=== PATIENT | female | born 1945 | race Caucasian/White ===

== ENCOUNTER 2024-08-01 23:59 | Inpatient (IN) | payer MEDICARE, OTHER, SELFPAY ==
[2024-08-01 20:25] VITALS: BP 157/61; BMI 25.5
[2024-08-01 20:26] VITALS: BP 157/61
[2024-08-01 20:54] LABS: % Basophils 0.8 % (0-2); % Immature Granulocytes 0.5 % (0-0.5); % Lymphocytes 18.8 % (20.5-51.1); % Neutrophils 72.9 % (42.2-75.2); Absolute Basophils 0.1 10^3/uL (0-0.2); Absolute Eosinophils 0.1 10^3/uL (0-0.7); Absolute Immature Granulocytes 0.1 10^3/uL (0-0.05); Absolute Lymphocytes 1.9 10^3/uL (1.2-3.4); Absolute Monocytes 0.6 10^3/uL (0.1-0.6); Absolute Neutrophils 7.5 10^3/uL (1.4-6.5); Hematocrit 31.4 % (37.0-47.0); Hemoglobin 10.6 g/dL (12.0-16.0); Mean Corp Hgb Conc. 33.8 g/dL (33.0-37.0); Mean Corpuscular Hgb 28.8 pg (27.0-31.0); Mean Corpuscular Volume 85.3 fL (81.0-99.0); Mean Platelet Volume 9.6 fL (7.4-10.4); Nucleated Red Blood Cells % 0 %; Platelet Count 462 10^3/uL (130-400); Red Blood Cell Count 3.68 10^6/uL (4.20-5.40); Red Cell Dist. Width 12.6 % (11.5-14.5); White Blood Cell Count 10.3 10^3/uL (4.8-10.8)
--- NOTE | 2024-08-01 20:58 | ED.MUSCINJ ---
HPI-Injury
General
Chief Complaint: Fall
Source: patient and family
Exam Limitations: none
Time Seen by Provider: 08/01/24 20:35
Nursing documentation reviewed up to this point in time: agreed with
History of Present Illness-Injury
Is this injury a work related problem?: No
Is pt an associate of [facility]?: No
Initial Injury comments:
79-year-old female right hip pain status post slip in the kitchen she just come back from taking care of her dog, she was trying to get a cup of tea, and then slipped fell right on her right hip no preceding chest pain or shortness of breath no neck
pain no head strike no tongue bite takes no blood thinners, no alcohol, tells me she broke her ankle earlier in life,
Past History
Past History
ED Past Medical History: Hypercholesterolemia, Hypothyroidism and Other (Diverticulosis, kidney stones)
ED Past Surgical History: Gynecological and Other (Cystocele)
Social History
Tobacco: Non-smoker
Alcohol: None
Drug: None
Living: with family
Employment: Retired
Family History
Family History: Other (Noncontributory)
Review of Systems
Review of Systems
All Other Systems: Not applicable
Constitutional: Denies fever
EENT: Reports no symptoms
Respiratory: Reports no symptoms
Cardiac: Reports no symptoms
ABD/GI: Reports no symptoms
Musculoskeletal: Reports joint pain
Phy Exam
Physical Exam
Physical Exam:
Physical Exam
General: 79 female looks uncomfortable due to pain normal mental status
Neck: No tongue bite no posterior neck pain
Heart: s1/s2 regular rate and rhythm, no murmur. equal radial pulses.
Lungs: no acute respiratory distress. clear bilaterally
Abdomen: Nontender
Neuro: alert and oriented. no focal neurological deficits
Skin: no rash
Psychiatric: well kept. interactive and cooperative
Extremities: Shortened right hip with painful range of motion
Injury Course
Orders/Labs/Results
Orders:
Orders
08/01/24 20:42
Electrocardiogram (*1) Urgent
Reason for Study: Other
Other Reason for Exam: trauma
Cardiac Monitoring- Treatment ONCE
EKG- Treatment ONCE
CR Hip - RT w/wo Pel 2-3 Vw* Urgent
Comment: include pelvis
Reason For Exam: Fall pain
Include a pelvis x-ray?: Yes
08/01/24 20:47
Type+Screen Urgent
Complete Blood Count/With Diff Urgent
Comprehensive Metabolic Panel Urgent
08/01/24 20:51
HYDROmorphone [Dilaudid] 0.5 mg IV NOW STA
Ondansetron Injectable [Zofran] 4 mg IV NOW STA
Abnormal Lab Results
08/01/24
20:47
RBC 3.68 L 10^6/uL
(4.20-5.40)
Hgb 10.6 L g/dL
(12.0-16.0)
Hct 31.4 L %
(37.0-47.0)
Plt Count 462 H 10^3/uL
(130-400)
Abs Immat Gran (auto) 0.1 H 10^3/uL
(0-0.05)
Absolute Neuts (auto) 7.5 H 10^3/uL
(1.4-6.5)
Lymphocytes % 18.8 L %
(20.5-51.1)
BUN 26 H mg/dl
(7-17)
Glucose 121 H mg/dl
(70-99)
08/01/24 20:47
08/01/24 20:47
MDM/Problems Addressed
Differential Diagnosis Includes:
Hip fracture, pelvic fracture, femur fracture, slip and
MDM/Problems Addressed:
Hip pain
*Radiology
Radiology exam reviewed: preliminary read by ED provider
*Pulse Oximetry
Patient hypoxic: no
*EKG
Interpreted by ED Provider?: Yes
Interpretation: normal
Comparison EKG: no comparison EKG present
Heart Rate: 78
Rate: normal
Rhythm: sinus
Ischemia: no ischemia
*Slitting Machine Operator Helper Interpretation
Rate: normal
Interpretation: normal
Heart Rate: 78
Rhythm: sinus
*Critical Care Note
Total Time (30-74mins, 75-104mins- exclusive of procedures): Not Applicable
Patient Management
Social determinants of health affecting care: Strong social support
Discussion with other providers: Hospitalist
Escalation/DeEscalation of care consider admission/obs:
Patient with likely hip fracture will require admission
Update Note
Update Note:
Update x-ray noted confirms a right intertrochanter fracture patient family updated message sent to hospitalist and on-call orthopedics
ED Attending Note
-
Portions of this chart may have been created with voice recognition software.� Occasional wrong word or��sound alike� substitutions may have occurred due to the inherent limitations of voice recognition software.
Discharge Plan
Departure
Patient Disposition: Admit
Date of Disposition: 08/01/24
Time of Disposition: 22:57
Presentation/result/management discussed w/ accepting MD/DO: Hospitalist
Patient with high blood pressure during this ER visit?: No
Condition: Good
Covid-19: Not Applicable
Discharge Problem:
Closed hip fracture requiring operative repair
Prescriptions:
No Action
levothyroxine [Synthroid] 75 MCG tablet
75 mcg PO DAILY
simvastatin 20 MG tablet
20 mg PO HS
aspirin [Estefani Aspirin] 325 mg Tablet
325 mg PO DAILYPRN PRN (Reason: mild pain/headache)
Theragen Tablet
1 tab PO DAILY
Referrals:
PRIVATE,PHYSICIAN [Family Provider] -
Interventions
Interventions:
*Risk Screen - Suicide Last Done: 08/01/24 20:25
*General Assessment Last Done: 08/01/24 20:25
*Neglect/Abuse Screening Last Done: 08/01/24 20:25
ED- Fall Risk Assessment Last Done: 08/01/24 20:25
*ED COVID-19 Vaccine History Last Done: 08/01/24 20:25
ED-Musculoskeletal Assessment Last Done: 08/01/24 22:07
ED- Neurological Assessment Last Done: 08/01/24 22:07
ED-Skin Assessment Last Done: 08/01/24 22:07
Discharge Date and Time
Print Language: FRENCH
[2024-08-01 21:00] VITALS: BP 124/92
[2024-08-01] MEDS: DILAUDID 0.5 MG IV (21:06)
[2024-08-01] MEDS: ZOFRAN 4 MG IV (21:06)
[2024-08-01 21:13] LABS: ALT (SGPT) 20 U/L (0-35); AST (SGOT) 32 U/L (14-36); Albumin 3.9 g/dl (3.5-5.0); Alkaline Phosphatase 41 U/L (38-126); Blood Urea Nitrogen 26 mg/dl (7-17); Calcium 9.3 mg/dl (8.4-10.2); Carbon Dioxide 27 mmol/L (22-30); Chloride 103 mmol/L (98-107); Estimated Creatinine Clearance 50 ml/min; Glucose 121 mg/dl (70-99); Potassium 4.4 mmol/L (3.5-5.1); Sodium 140 mmol/L (135-145); Total Bilirubin 0.3 mg/dl (0.2-1.3); Total Protein 6.5 g/dl (6.3-8.2); eGFR > 60.00
[2024-08-01 22:00] VITALS: BP 130/56
[2024-08-01 23:06] VITALS: BP 139/57
--- NOTE | 2024-08-01 23:53 | HPS.HSE ---
Family Physician
-
Family Physician: PHYSICIAN PRIVATE
Chief Complaint
-
Fall with right hip fracture
History of Present Illness
Is an 79-year-old female who has a past medical history of hyperlipidemia and hypothyroidism presenting to the emergency department with right-sided hip pain following a mechanical fall at home.
Patient reports that she was seen acute change after dinner. She was next week countdown and she rapidly turned around to make tea stepping on a slippery mat. She went down to the floor but did not hit her head. She had significant pain and was
unable to get up. Ultimately EMS had to bring it to the emergency department.
In the ED he was afebrile 98, blood pressure was 134/57, pulse was 77. On EKG she has sinus bradycardia without any acute ST or T wave changes. Rate was 55. CBC shows a hemoglobin of 10.6 but otherwise was otherwise unremarkable. BUN and
creatinine and electrolytes were all within normal limits. She had hip x-ray showing a right intertrochanteric hip fracture.
Medical History
Past Medical History
Past Medical History: Reports Hypercholesterolemia and Hypothyroidism
Past Surgical History: Reports None
Social History
Tobacco: Non-smoker
Alcohol: None
Drug: None
Personal: Single
Living: With Family
Employment: Retired
Family History
Family History: Not pertinent
Allergies / Home Medications
Allergies reflects when Allergies were last updated in [employer].
Home Medications with original date entered in [employer]
Allergy/Medication List:
Allergies
Allergy/AdvReac Type Severity Reaction Status Date / Time
cephalexin monohydrate Allergy Hives Verified 08/01/24 20:24
[From [facility]]
Home Medications
levothyroxine 75 mcg tablet (Synthroid) 75 mcg PO DAILY 03/02/11
simvastatin 20 mg tablet 20 mg PO HS 03/02/11
aspirin 325 mg tablet (Estefani Aspirin) 325 mg PO DAILYPRN PRN mild pain/headache 08/01/24
therapeutic multivitamin 1 tab PO DAILY 08/01/24
Review of Systems
-
History Source: Patient
Constitutional: Reports No Symptoms
EENT: Reports No Symptoms
Respiratory: Reports No Symptoms
Cardiac: Reports No Symptoms
Abdomen/GI: Reports No Symptoms
: Reports No Symptoms
Musculoskeletal: Reports Joint Pain (Right hip pain)
Skin: Reports No Symptoms
Neurological: Reports No Symptoms
Endocrine: Reports No Symptoms
Hematologic/Lymphatic: Reports No Symptoms
Psych: Reports No Symptoms
Physical Exam
Vital Signs
Vital Signs
Temp Pulse Resp BP Pulse Ox
98.1 F 77 27 139/57 100
08/01/24 20:25 08/01/24 23:45 08/01/24 23:45 08/01/24 23:06 08/01/24 23:45
Physical Exam
General: Well Developed, Well Nourished, No Apparent Distress and Comfortable
HEENT: NormoCephalic, Anicteric, Moist mucous membranes and Atraumatic
Respiratory: Clear
Cardiac: S1/S2 and Regular Rhythm
Breast: Deferred by me
GI: Soft, Non Tender, Non Distended and Normal Bowel Sounds
Rectal: Brown
Genito-urinary: Deferred by me
Musculoskeletal: No Clubbing, No Cyanosis and Other (Who externally rotated right hip. Pulses intact.)
Skin: Warm
Neuro: AO x 3
Hematologic/Lymphatic: No Lymphadenopathy
Psych: Calm
Laboratory Results
-
08/01/24 20:47
08/01/24 20:47
Laboratory Results
Total Bilirubin 0.3 mg/dl (0.2-1.3) 08/01/24 20:47
AST 32 U/L (14-36) 08/01/24 20:47
ALT 20 U/L (0-35) 08/01/24 20:47
Alkaline Phosphatase 41 U/L (38-126) 08/01/24 20:47
Data Reviewed
-
Diagnostic Radiology: Image Personally Visualized and interpreted
Medical Tests (Nuc Med, Echo, EKG etc): Image Personally Visualized and interpreted
Lab Data: Labs Reviewed by me
Old Records: Reviewed
Impression/Plan
-
IMPRESSION:
79-year-old female with history of hypercholesterolemia and hypothyroid who presented to the Emergency Department following a mechanical fall at home. There was no loss of consciousness. She otherwise suffered a right intertrochanteric hip
fracture.
PLAN:
1. HIP Fracture
- admit to medsurg
- pain control and antiemetics
- ortho aware, NPO, OR in am
- PT evaluation
- no AC until after surgery
2. Hypothyroid
- continue levothyroxine for now
DVT PPX - lovenox sq
Code Status - Full Code
[2024-08-02] VITALS (14 sets, daily range): BP systolic 103–161; BP diastolic 42–77; BMI 25.2
[2024-08-02] MEDS: DILAUDID 0.5 MG IV (01:18)
[2024-08-02] MEDS: TYLENOL 650 MG PO ×6 (02:22→23:53)
--- NOTE | 2024-08-02 02:25 | PTCARENOTE ---
Received pt from ED via stretcher. Pulled onto bed. AAOx3. Oriented to floor, call varma within reach
[2024-08-02] MEDS: TYLENOL PO (05:08)
[2024-08-02 07:42] LABS: Hematocrit 31.5 % (37.0-47.0); Hemoglobin 10.1 g/dL (12.0-16.0); Mean Corp Hgb Conc. 32.1 g/dL (33.0-37.0); Mean Corpuscular Volume 90.5 fL (81.0-99.0); Mean Platelet Volume 9.8 fL (7.4-10.4); Platelet Count 420 10^3/uL (130-400); Red Blood Cell Count 3.48 10^6/uL (4.20-5.40); Red Cell Dist. Width 12.8 % (11.5-14.5); White Blood Cell Count 11.7 10^3/uL (4.8-10.8)
[2024-08-02 07:47] LABS: INR 1.13; PT 14.8 Sec (11.4-14.6)
[2024-08-02] MEDS: SYNTHROID 75 MCG PO (08:37)
[2024-08-02 09:23] LABS: Blood Urea Nitrogen 21 mg/dl (7-17); Calcium 8.8 mg/dl (8.4-10.2); Carbon Dioxide 28 mmol/L (22-30); Chloride 103 mmol/L (98-107); Estimated Creatinine Clearance 48 ml/min; Glucose 90 mg/dl (70-99); Potassium 4.6 mmol/L (3.5-5.1); Sodium 141 mmol/L (135-145); eGFR > 60.00
--- NOTE | 2024-08-02 10:02 | W.PN.HOSP.TC ---
Today's Communication/Plan
-
Plan for hip surgery today.
Assessment / Plan
Assessment / Plan
Physical exam:
General: Well Developed, Well Nourished and No Apparent Distress
HEENT: Normocephalic, Atraumatic and Moist Mucous Membranes
Respiratory: Clear to Auscultation; Negative Wheezes, Rales or Rhonchi
Cardiac: Regular Rhythm and S1/S2
GI: Soft, Nontender and Nondistended
Musculoskeletal: Right hip pain. No Clubbing, No Cyanosis and No Edema
Neuro: Awake, Alert and Oriented
Psych: Calm
A/P:
Right hip fracture:
Keep n.p.o.
Add IV fluids while n.p.o.
Change DVT prophylaxis preop to SCDs rather than Lovenox--> can change to Lovenox postop
Pain control
Orthopedic consult appreciated and probable for OR today
Preop eval:
Patient can go for surgery and no contraindications.
RCRI 0 given her risk of 3.9% risk of , ID, or cardiac arrest
Twelve-lead EKG interpreted by myself with sinus bradycardia [address]-T changes abnormality or any other concerning abnormalities.
Continue to monitor perioperatively
Hypothyroidism:
Continue levothyroxine 75 mcg p.o. daily
Hyperlipidemia:
Continue atorvastatin 10 mg p.o. nightly
DVT prophylaxis:
SCD
CODE STATUS:
Full code
Anticipated Discharge: 24 - 48 hours
Subjective/Interval History
-
Date of Service: August 02, 2024
Patient complains of pain on the right hip. No chest pain or shortness of breath
Objective Data
-
Labs:
Laboratory Results
08/02/24 08/02/24
07:07 07:08
WBC 11.7 H
Hgb 10.1 L
Hct 31.5 L
Plt Count 420 H
PT 14.8 H
INR 1.13
Sodium 141
Potassium 4.6
Chloride 103
Carbon Dioxide 28
BUN 21 H
Creatinine 0.7
Glucose 90
Calcium 8.8
Vital Signs:
Vital Signs
Temp Pulse Resp BP Pulse Ox
98.5 F 59 18 135/56 100
08/02/24 07:11 08/02/24 07:11 08/02/24 07:11 08/02/24 07:11 08/02/24 07:11
--- NOTE | 2024-08-02 10:18 | CON.ORTHO ---
Consultation - Orthopedics
History
HPI: 79-year-old female community ambulator presented to the emergency department status post fall with complaints of right hip pain and inability to bear weight. She was subsequently diagnosed with a right intertrochanteric femur fracture. She
was admitted to the hospitalist service. Orthopedics was consulted for further evaluation and treatment. This morning patient localizes pain to the right groin. She reports pain is made worse with any direct palpation affected area with attempted
ambulation. She reports that she lives at home with son and [id number] and [place] Denies smoking [place]. Denies diabetes.
Allergies / Home Medications
Past medical history: Hypercholesterolemia, hypothyroidism
Past surgical history: None reported
Social history: Non-smoker, lives with family
Family history: Not pertinent
Allergy/AdvReac Type Severity Reaction Status Date / Time
cephalexin monohydrate Allergy Hives Verified 08/01/24 20:24
[From [employer]]
�Medication �Instructions �Recorded
levothyroxine 75 mcg tablet 75 mcg PO DAILY 03/02/11
(Synthroid)
simvastatin 20 mg tablet 20 mg PO HS 03/02/11
aspirin 325 mg tablet (Estefani 325 mg PO DAILYPRN PRN mild 08/01/24
Aspirin) pain/headache
therapeutic multivitamin 1 tab PO DAILY 08/01/24
Vital Signs / Lab Results
Temp Pulse Resp BP Pulse Ox
98.5 F 59 18 135/56 100
08/02/24 07:11 08/02/24 07:11 08/02/24 07:11 08/02/24 07:11 08/02/24 07:11
08/02/24 07:07
08/02/24 07:08
10 point review systems reviewed and negative unless otherwise stated
General: Pleasant, no acute distress supine in bed
Musculoskeletal right lower extremity
Musculoskeletal right lower extremity
Skin intact, no erythema or ecchymotic staining
Extremity shortened externally rotated
Tenderness palpation over groin or lateral trochanteric flare
Pain with logroll
No ipsilateral palpable knee effusion
Positive EHL, FHL, ankle dorsiflexion, plantarflexion
Brisk cap refill
No other areas of bony tenderness palpation crepitation of long bones or joints and tertiary examination
Diagnostic studies
X-rays right hip reveal right intertrochanteric femur fracture
Assessment / Plan
79-year-old female status post fall with right intertrochanteric femur fracture. I had a long and detailed discussion with the patient regarding diagnosis and treatment options. We discussed both surgical nonsurgical options. After discussion we
mutually agreed to proceed with surgical intervention in the form of right cephalomedullary nail fixation of intertrochanteric femur fracture. We discussed risks benefits and alternatives of surgery. We discussed the usual expected perioperative
and postoperative course. After discussion verbal consent was obtained. Will plan obtain written informed consent prior to procedure
Nonweightbearing right lower extremity
N.p.o.
Please hold DVT prophylaxis
Medical management per primary team
Plan: 2 OR today for operative fixation right intertrochanteric femur fracture pending OR availability and medical clearance
--- NOTE | 2024-08-02 10:44 | CM ---
Patient seen at bedside.
IA completed.
OR today DX: Intratrochanteric fx from fall
PMH: Hyperlipidemia, hypothyroid
Await PT/OT eval post-op
PCP: [facility]
Pharmacy: [facility]
PLAN: OR today, await PT/OT evals post op
[2024-08-02] MEDS: NSS 1000 IV ×2 (14:16→20:09)
--- NOTE | 2024-08-02 16:56 | PTCARENOTE ---
Spoke to Sarah in OR to give report. Pt was sent with transport and chart. Pt will go to [facility] post op
--- NOTE | 2024-08-02 18:46 | OR.RPT ---
Operative Report
Operative Report
Anesthesia Type:
Spinal
Operative Indications:
Right
Intertrochanteric femur fracture
Operative Findings :
Same
Complications:
None
Implants:
10 mm by 130 degree short gamma nail, 95 mm cephalomedullary screw, 35 mm x 5 mm distal interlocking screw
Procedure and Technique:
Insertion right short cephalomedullary nail
INDICATIONS FOR PROCEDURE:
79year-old patient presented status post mechanical fall. She was subsequently diagnosed with an intertrochanteric femur fracture. Orthopedics was consulted for further evaluation and treatment. After discussion with the patient and her family,
decision was made to proceed with operative intervention in the form of short cephalomedullary nail. Long discussion was had regarding risks and benefits of procedure. Risks include but are not limited to infection, blood loss, damage to
surrounding structures, persistent pain, loss of function, need for repeat surgery, implant cut out, periprosthetic fracture, DVT/PE and adverse risks of anesthesia. Benefits include early mobilization and fracture stabilization. After discussion
written informed consent was obtained.
OPERATIVE PROCEDURE:
Patient was seen and identified in the preoperative holding area. Operative extremity was marked. Patient was taken to the operating room and provided anesthesia by the anesthesia team. Placed supine on fracture table. Nonoperative extremity was
placed in a scissored position and padded with a pillow to the central post of the fracture table. Operative extremity was placed in a well-padded fracture boot. Biplanar fluoroscopy confirmed appropriate reduction after axial traction, adduction
and slight internal rotation of the fracture. Operative extremity was then prepped and draped in normal sterile fashion. Timeout was performed again identifying the operative extremity correctly. Preoperative antibiotics were addressed.
Approximately 5 cm incision was made 2 fingerbreadths proximal to the greater trochanter. Sharp dissection was carried through skin and subcutaneous tissues deep fascial layers. Guidepin was then inserted under plantar fluoroscopic guidance
through the greater trochanter in accordance with the implants operative technique. This was inserted to a depth just distal to the lesser trochanter. Proximal opening reamer was then utilized. A 10 millimeter X 130 degree short cephalomedullary
nail was then inserted to the appropriate depth. Trocar was then inserted through the aiming arm. Sharp dissection was then carried through skin and subcutaneous tissues as well as deep fascial layers. Guidewire was inserted through the trocar
into the femoral neck and head. Appropriate position was confirmed under biplanar fluoroscopy. Attention was made to minimize the tip apex distance. Measurements were obtained for the cephalomedullary screw. Cannulated drill was then drilled to
the appropriate depth followed by the insertion of cannulated cephalomedullary screw. Appropriate final position of the screw within the confines of the femoral neck and head were confirmed again on biplanar fluoroscopy. The setscrew was then
deployed additional trocar was then inserted through the aiming arm for the distal interlocking screw. Sharp dissection was carried through skin, subcutaneous tissues and deep fascial layers. Appropriate length interlocking screw was then drilled
and inserted. Final appropriate positioning was confirmed again on biplanar fluoroscopy. Satisfied with the extent of surgery, wounds were copiously irrigated with normal saline solution and closed in a layered fashion utilizing 0 Vicryl for deep
fascial layer, 2-0 Vicryl for subcu cutaneous layer and radha for skin. Aquacel dressings were applied. Anesthesia was reversed and patient was taken to the operating room in stable condition. Postoperative plans include weightbearing to
tolerance operative extremity. Recommend Lovenox renally dosed x 28 days for DVT prophylaxis
Disposition:
PACU stable condition
--- NOTE | 2024-08-02 20:00 | PTCARENOTE ---
Patient arrived to [facility] from PACU, post op R hip ORIF. AAOx2, pleasant and oriented to new room. R hip drsg with scant amount of drainage. VSS, IVF infusing per order, no needs at this time. family at bedside. assessment on going.
[2024-08-02] MEDS: LIPITOR PO (20:09)
[2024-08-02] MEDS: SENOKOT 17.2 MG PO (20:09)
[2024-08-02] MEDS: COLACE 100 MG PO (20:09)
--- NOTE | 2024-08-02 21:51 | PTCARENOTE ---
Patient called and c/o of discomfort with venous foot pumps. Patient was educated on importance of DVT prevention post op but patient insisted foot pumps were very umfortable so SCD's placed on as alternative. Patient satisfied with this option.
[2024-08-02] MEDS: ANCEF 5 IV (23:53)
[2024-08-03] VITALS (7 sets, daily range): BP systolic 124–144; BP diastolic 55–82; PULSE 76–86; O2SAT 99
[2024-08-03] MEDS: NSS IV (03:02)
[2024-08-03] MEDS: ROXICODONE 5 MG PO (03:51)
[2024-08-03] MEDS: TYLENOL 650 MG PO ×3 (03:51→12:13)
[2024-08-03 05:42] LABS: Hematocrit 32.5 % (37.0-47.0); Hemoglobin 10.4 g/dL (12.0-16.0); Mean Corpuscular Hgb 28.7 pg (27.0-31.0); Mean Corpuscular Volume 89.5 fL (81.0-99.0); Mean Platelet Volume 9.7 fL (7.4-10.4); Platelet Count 455 10^3/uL (130-400); Red Blood Cell Count 3.63 10^6/uL (4.20-5.40); Red Cell Dist. Width 12.7 % (11.5-14.5); White Blood Cell Count 15.8 10^3/uL (4.8-10.8)
[2024-08-03] MEDS: NSS 1000 IV (05:42)
[2024-08-03 06:09] LABS: Blood Urea Nitrogen 17 mg/dl (7-17); Calcium 8.6 mg/dl (8.4-10.2); Carbon Dioxide 20 mmol/L (22-30); Chloride 105 mmol/L (98-107); Estimated Creatinine Clearance 55 ml/min; Glucose 173 mg/dl (70-99); Potassium 4.2 mmol/L (3.5-5.1); Sodium 139 mmol/L (135-145); eGFR > 60.00
--- NOTE | 2024-08-03 06:30 | PTCARENOTE ---
patient increasingly confused; disoriented to place, time and situation, and now attempting to get up out of bed on her own. Patient is not remembering to use call varma to ask for help. Medsitter will be implemented in patient room
[2024-08-03] MEDS: SENOKOT 17.2 MG PO (08:04)
[2024-08-03] MEDS: SYNTHROID 75 MCG PO (08:05)
[2024-08-03] MEDS: COLACE 100 MG PO (08:06)
[2024-08-03] MEDS: LOVENOX 40 MG SC (08:06)
[2024-08-03] MEDS: ANCEF 5 IV (08:06)
--- NOTE | 2024-08-03 09:31 | W.PN.HOSP.TC ---
Addendum entered and electronically signed by Michael Barreto MD 08/03/24 14:52:
Mild delirium. Avoid narcotics so add Tylenol 1 g every 8 hours scheduled and IV Toradol as needed. Also check a UA and urine culture.
Original Note:
Today's Communication/Plan
-
PT OT. Postop care
Assessment / Plan
Assessment / Plan
Physical exam:
General: Well Developed, Well Nourished and No Apparent Distress
HEENT: Normocephalic, Atraumatic and Moist Mucous Membranes
Respiratory: Clear to Auscultation; Negative Wheezes, Rales or Rhonchi
Cardiac: Regular Rhythm and S1/S2
GI: Soft, Nontender and Nondistended
Musculoskeletal: Right hip postop findings with blood in the dressing. No Clubbing, No Cyanosis and No Edema
Neuro: Awake, Alert and Oriented
Psych: Calm
A/P:
Right hip fracture:
Status post insertion right short cephalomedullary nail on 08/02.
Pain control
PT OT eval
Anemia:
Stable
Hemoglobin 10.4 today
Leukocytosis:
Reactive versus infectious
Afebrile
WBC 15.8 today
Preop eval:
Patient can go for surgery and no contraindications.
RCRI 0 given her risk of 3.9% risk of , NE, or cardiac arrest
Twelve-lead EKG interpreted by myself with sinus bradycardia [address]-T changes abnormality or any other concerning abnormalities.
Continue to monitor perioperatively
Hypothyroidism:
Continue levothyroxine 75 mcg p.o. daily
Hyperlipidemia:
Continue atorvastatin 10 mg p.o. nightly
DVT prophylaxis:
Lovenox SQ
CODE STATUS:
Full code
Anticipated Discharge: 24 - 48 hours
Subjective/Interval History
-
Date of Service: August 03, 2024
Denies chest pain or shortness of breath. Moving around but instructed her to ask for help due to safety issues.
Objective Data
-
Labs:
Laboratory Results
08/03/24
05:29
WBC 15.8 H
Hgb 10.4 L
Hct 32.5 L
Plt Count 455 H
Sodium 139
Potassium 4.2
Chloride 105
Carbon Dioxide 20 L
BUN 17
Creatinine 0.6
Glucose 173 H
Calcium 8.6
Vital Signs:
Vital Signs
Temp Pulse Resp BP Pulse Ox
98.0 F 67 18 139/55 99
08/03/24 07:00 08/03/24 07:00 08/03/24 07:00 08/03/24 07:00 08/03/24 07:00
I&O
08/02/24 08/03/24 08/04/24
06:59 06:59 06:59
Intake Total 1859
Balance 1859
--- NOTE | 2024-08-03 13:03 | CM ---
PT/OT recs - SNF
Pt daughter and family members at bedside
Discussed SNF/rehab - Given choice list from [employer]
Per daughter will review with family including pt
Pt confused - Medsitter in use
Plan - SNF when medically ready and bed obtained
--- NOTE | 2024-08-03 15:13 | W.PN.ORTHO ---
Today's Communication / Plan
-
79-year-old female postop day 1 status post right short supplementally nail fixation intertrochanteric femur fracture
Weightbearing as tolerated right lower extremity
PT OT
Pain control
DVT prophylaxis: Recommend Lovenox x 28 days renally dosed
Medical management per primary team
Patient is somewhat confused this afternoon. Per nursing she was fairly confused overnight and for the better part of the day today. Reportedly planning to look at her urine and minimize narcotics
Plan: Follow-up with myself outpatient 2 to 3 weeks for planned removal of radha
Subjective
.
.:
Patient comfortable appearing in chair. She is moderately confused today compared to yesterday morning.
Vital Signs and Labs
.
Vital Signs and Labs:
Lab Results
08/03/24 05:29
08/03/24 05:29
Temp Pulse Resp BP Pulse Ox
98.0 F 72 16 144/64 99
08/03/24 11:35 08/03/24 11:35 08/03/24 11:35 08/03/24 11:35 08/03/24 11:54
PT 14.8 Sec (11.4-14.6) H 08/02/24 07:08
INR 1.13 08/02/24 07:08
Physical Exam
-
Musculoskeletal right lower extremity
Mild to moderate bloody drainage dressings
Moderate swelling thigh
Positive EHL FHL, ankle dorsiflexion plantarflexion
Brisk cap refill
[2024-08-03] MEDS: LIPITOR 10 MG PO (17:19)
[2024-08-03] MEDS: TYLENOL PO (19:16)
[2024-08-03] MEDS: COLACE PO (19:45)
[2024-08-03] MEDS: SENOKOT PO (19:46)
[2024-08-03] MEDS: TYLENOL 1000 MG PO (22:20)
[2024-08-03 22:24] LABS: Urine Albumin Negative (Neg - Trace); Urine Bilirubin Negative (Negative); Urine Character Slightly Cloudy (Clear); Urine Color Yellow; Urine Glucose Negative (Negative); Urine Ketone Negative (Negative); Urine Leukocyte 1+ (Negative); Urine Nitrite Positive (Negative); Urine Occult Blood Trace (Negative); Urine Specific Gravity 1.015 (<1.030); Urine Urobilinogen Negative (Neg - 1+)
[2024-08-03 22:32] LABS: Urine Bacteria Few (Negative); Urine Red Blood Cell 0-2 /HPF (0-2); Urine Squamous Cell 21-25 /LPF (Few); Urine White Cell 70-80 /HPF (0-5)
[2024-08-04 03:00] VITALS: BP 143/53
[2024-08-04 05:21] LABS: Hematocrit 26.3 % (37.0-47.0); Hemoglobin 8.4 g/dL (12.0-16.0); Mean Corp Hgb Conc. 31.9 g/dL (33.0-37.0); Mean Corpuscular Hgb 28.5 pg (27.0-31.0); Mean Corpuscular Volume 89.2 fL (81.0-99.0); Mean Platelet Volume 9.8 fL (7.4-10.4); Platelet Count 391 10^3/uL (130-400); Red Blood Cell Count 2.95 10^6/uL (4.20-5.40); Red Cell Dist. Width 13.2 % (11.5-14.5); White Blood Cell Count 13.5 10^3/uL (4.8-10.8)
[2024-08-04 05:42] LABS: Blood Urea Nitrogen 17 mg/dl (7-17); Calcium 8.3 mg/dl (8.4-10.2); Carbon Dioxide 25 mmol/L (22-30); Chloride 106 mmol/L (98-107); Estimated Creatinine Clearance 55 ml/min; Glucose 103 mg/dl (70-99); Potassium 4.3 mmol/L (3.5-5.1); Sodium 140 mmol/L (135-145); eGFR > 60.00
--- NOTE | 2024-08-04 07:19 | W.PN.HOSP.TC ---
Today's Communication/Plan
-
Postop care. Antibiotics
Assessment / Plan
Assessment / Plan
Physical exam:
General: Well Developed, Well Nourished and No Apparent Distress
HEENT: Normocephalic, Atraumatic and Moist Mucous Membranes
Respiratory: Clear to Auscultation; Negative Wheezes, Rales or Rhonchi
Cardiac: Regular Rhythm and S1/S2
GI: Soft, Nontender and Nondistended
Musculoskeletal: Right hip postop findings with blood in the dressing. No Clubbing, No Cyanosis and No Edema
Neuro: Awake, Alert and Oriented
Psych: Calm
A/P:
Right hip fracture:
Status post insertion right short cephalomedullary nail on 08/02.
Pain control--> on scheduled Tylenol, added IV Toradol as needed, and oxycodone low-dose only for severe pain as needed
PT OT eval
Suspected UTI:
Start IV Levaquin 500 mg daily (cephalosporin allergy).
Reviewed last twelve-lead EKG on 08/01 with QTc acceptable around 420
Abnormal UA with pyuria 7-80 WBC count positive nitrite and positive leukocyte esterase and few bacteria.
Follow-up urine culture
Leukocytosis:
WBC 15.8-->13.5 today
In hospital delirium:
Improving
Minimize narcotics as much as possible
Treat infection
Redirect and keep steady environment
Monitor mental status and behavior
Anemia:
Mild drift but stable
Hemoglobin 8.4 today
Continue to monitor hemoglobin
Preop eval:
Patient was risk stratified and was okay to go for surgery and no contraindications.
RCRI 0 given her risk of 3.9% risk of , [place], or cardiac arrest
Twelve-lead EKG interpreted by myself with sinus bradycardia [address]-T changes abnormality or any other concerning abnormalities.
Continue to monitor perioperatively
Hypothyroidism:
Continue levothyroxine 75 mcg p.o. daily
Hyperlipidemia:
Continue atorvastatin 10 mg p.o. nightly
DVT prophylaxis:
Lovenox SQ
CODE STATUS:
Full code
Anticipated Discharge: 24 - 48 hours
Subjective/Interval History
-
Date of Service: August 04, 2024
Patient much improved from mental status today. Hip discomfort tolerable. Afebrile
Objective Data
-
Labs:
Laboratory Results
08/04/24
04:02
WBC 13.5 H
Hgb 8.4 L
Hct 26.3 L
Plt Count 391
Sodium 140
Potassium 4.3
Chloride 106
Carbon Dioxide 25
BUN 17
Creatinine 0.6
Glucose 103 H
Calcium 8.3 L
Vital Signs:
Vital Signs
Temp Pulse Resp BP Pulse Ox
98.2 F 70 18 143/53 100
08/04/24 03:00 08/04/24 03:00 08/04/24 03:00 08/04/24 03:00 08/04/24 03:00
I&O
08/03/24 08/04/24 08/05/24
06:59 06:59 06:59
Intake Total 1859 2540 / 2540
Balance 1859 2540 / 2540
[2024-08-04 07:44] VITALS: BP 107/83
[2024-08-04] MEDS: COLACE 100 MG PO ×2 (08:02→20:18)
[2024-08-04] MEDS: SYNTHROID 75 MCG PO (08:02)
[2024-08-04] MEDS: TYLENOL 1000 MG PO ×3 (08:02→23:56)
[2024-08-04] MEDS: SENOKOT PO (08:03)
[2024-08-04] MEDS: LEVAQUIN 100 IV (08:04)
[2024-08-04] MEDS: LOVENOX 40 MG SC (08:04)
[2024-08-04 11:03] VITALS: BP 120/74; BP 120/76; PULSE 74; O2SAT 99
--- NOTE | 2024-08-04 14:31 | CM ---
Chart reviewed
Obtained SNF choices from pts
[facility]
Referral sent in [facility] d/c'ed this AM
Plan - SNF when bed obtained
[2024-08-04 15:00] VITALS: BP 144/66
[2024-08-04] MEDS: LIPITOR 10 MG PO (17:08)
[2024-08-04] MEDS: SENOKOT 17.2 MG PO (20:18)
[2024-08-04 22:48] VITALS: BP 134/48
[2024-08-05 05:44] LABS: % Basophils 0.3 % (0-2); % Eosinophils 0.2 % (0-6); % Immature Granulocytes 0.6 % (0-0.5); % Lymphocytes 14.9 % (20.5-51.1); % Monocytes 8.6 % (1.7-9.3); % Neutrophils 75.4 % (42.2-75.2); Absolute Immature Granulocytes 0.1 10^3/uL (0-0.05); Absolute Lymphocytes 1.4 10^3/uL (1.2-3.4); Absolute Monocytes 0.8 10^3/uL (0.1-0.6); Absolute Neutrophils 7.2 10^3/uL (1.4-6.5); Hemoglobin 8.3 g/dL (12.0-16.0); Mean Corp Hgb Conc. 31.9 g/dL (33.0-37.0); Mean Corpuscular Hgb 28.3 pg (27.0-31.0); Mean Corpuscular Volume 88.7 fL (81.0-99.0); Mean Platelet Volume 10.4 fL (7.4-10.4); Nucleated Red Blood Cells % 0 %; Platelet Count 367 10^3/uL (130-400); Red Blood Cell Count 2.93 10^6/uL (4.20-5.40); Red Cell Dist. Width 13.2 % (11.5-14.5); White Blood Cell Count 9.5 10^3/uL (4.8-10.8)
[2024-08-05] MEDS: TYLENOL 1000 MG PO ×3 (06:07→22:24)
[2024-08-05 06:11] LABS: Blood Urea Nitrogen 14 mg/dl (7-17); Calcium 8.2 mg/dl (8.4-10.2); Carbon Dioxide 24 mmol/L (22-30); Chloride 107 mmol/L (98-107); Estimated Creatinine Clearance 55 ml/min; Glucose 88 mg/dl (70-99); Potassium 4.4 mmol/L (3.5-5.1); Sodium 141 mmol/L (135-145); eGFR > 60.00
[2024-08-05 08:00] VITALS: BP 124/59
[2024-08-05] MEDS: COLACE 100 MG PO (09:27)
[2024-08-05] MEDS: LOVENOX 40 MG SC (09:28)
[2024-08-05] MEDS: LEVAQUIN 100 IV (09:28)
[2024-08-05] MEDS: SENOKOT 17.2 MG PO (09:28)
[2024-08-05] MEDS: SYNTHROID 75 MCG PO (09:28)
[2024-08-05 10:35] VITALS: BP 134/64
[2024-08-05 10:43] VITALS: BP 134/64
--- NOTE | 2024-08-05 11:44 | CM ---
Addendum entered by Molly Stevens 08/05/24 14:39:
Pt accepted at [facility]
LM at [facility] regarding status
Spoke with pt and her - accepted [facility]
Spoke with Lyndsey at [facility] - aware family has accepted - given contact info
Plan - transfer to [facility] SNF when medically stable
R - [phone], ext [phone]
- [phone]
Original Note:
Chart reviewed
Pt for SNF - choices obtained and referral sent. Per Physician pt may be ready tomorrow for discharge
Called [facility] - spoke with Gabriela - will review referral
Spoke with Lyndsey at [facility] - will review referral
Plan - SNF when medically ready and bed obtained
--- NOTE | 2024-08-05 14:39 | W.PN.HOSP.TC ---
Today's Communication/Plan
-
Empiric antibiotics pending urine cultures
Mental status improved/delirium resolved.
Continue physical therapy
Monitor hemoglobin
Assessment / Plan
Assessment / Plan
A/P:
Right hip fracture:
Status post insertion right short cephalomedullary nail on 08/02.
Pain control--> on scheduled Tylenol, added IV Toradol as needed, and oxycodone low-dose only for severe pain as needed
PT OT eval
Suspected UTI:
Start IV Levaquin 500 mg daily (cephalosporin allergy).
Reviewed last twelve-lead EKG on 08/01 with QTc acceptable around 420
Abnormal UA with pyuria 7-80 WBC count positive nitrite and positive leukocyte esterase and few bacteria.
Follow-up urine culture
Leukocytosis:
WBC 15.8-->13.5 today
In hospital delirium:
Improving
Minimize narcotics as much as possible
Treat infection
Redirect and keep steady environment
Monitor mental status and behavior
Due to anemia anemia secondary to blood loss as well as dilutional:
Mild drift but stable
Hemoglobin plateau at 8s
Continue to monitor hemoglobin
Preop eval:
Patient was risk stratified and was okay to go for surgery and no contraindications.
RCRI 0 given her risk of 3.9% risk of , [place], or cardiac arrest
Twelve-lead EKG interpreted by myself with sinus bradycardia [address]-T changes abnormality or any other concerning abnormalities.
Continue to monitor perioperatively
Hypothyroidism:
Continue levothyroxine 75 mcg p.o. daily
Hyperlipidemia:
Continue atorvastatin 10 mg p.o. nightly
DVT prophylaxis:
Lovenox SQ
CODE STATUS:
Full code
Anticipated Discharge: 24 - 48 hours
Subjective/Interval History
-
Date of Service: August 05, 2024
Objective Data
-
Labs:
Laboratory Results
08/05/24
04:31
WBC 9.5
Hgb 8.3 L
Hct 26.0 L
Plt Count 367
Sodium 141
Potassium 4.4
Chloride 107
Carbon Dioxide 24
BUN 14
Creatinine 0.6
Glucose 88
Calcium 8.2 L
Vital Signs:
Vital Signs
Temp Pulse Resp BP Pulse Ox
99 F 65 17 124/59 100
08/05/24 08:00 08/05/24 08:00 08/05/24 08:00 08/05/24 08:00 08/05/24 08:00
I&O
08/04/24 08/05/24 08/06/24
06:59 06:59 06:59
Intake Total 2540 / 2540 1720 / 1720
Balance 2540 / 2540 1720 / 1720
Physical Exam
-
General: Well Developed and No Apparent Distress
HEENT: Normocephalic, Atraumatic and Moist Mucous Membranes
Respiratory: Clear to Auscultation
Cardiac: Regular Rhythm and S1/S2; Negative Murmur, Rub or Gallop
GI: Soft, Nontender, Nondistended and Normal Bowel Sounds; Negative Organomegaly
Rectal: Deferred by Provider
Musculoskeletal: No Clubbing, No Cyanosis and No Edema
Skin: Negative Rash
Neuro: Awake, Alert, Oriented, AO x 3 and Nonfocal/Grossly Intact
[2024-08-05 15:06] VITALS: BP 156/71
[2024-08-05] MEDS: LIPITOR 10 MG PO (17:19)
[2024-08-05] MEDS: COLACE PO (20:44)
[2024-08-05] MEDS: SENOKOT PO (20:44)
[2024-08-05 23:09] VITALS: BP 142/59
[2024-08-06 05:33] LABS: % Basophils 0.4 % (0-2); % Eosinophils 0.4 % (0-6); % Immature Granulocytes 0.9 % (0-0.5); % Lymphocytes 17.7 % (20.5-51.1); % Monocytes 7.9 % (1.7-9.3); % Neutrophils 72.7 % (42.2-75.2); Absolute Immature Granulocytes 0.1 10^3/uL (0-0.05); Absolute Lymphocytes 1.6 10^3/uL (1.2-3.4); Absolute Monocytes 0.7 10^3/uL (0.1-0.6); Absolute Neutrophils 6.6 10^3/uL (1.4-6.5); Hematocrit 23.9 % (37.0-47.0); Hemoglobin 7.8 g/dL (12.0-16.0); Mean Corp Hgb Conc. 32.6 g/dL (33.0-37.0); Mean Corpuscular Hgb 28.8 pg (27.0-31.0); Mean Corpuscular Volume 88.2 fL (81.0-99.0); Mean Platelet Volume 9.9 fL (7.4-10.4); Nucleated Red Blood Cells % 0 %; Platelet Count 365 10^3/uL (130-400); Red Blood Cell Count 2.71 10^6/uL (4.20-5.40); Red Cell Dist. Width 13.2 % (11.5-14.5); White Blood Cell Count 9.1 10^3/uL (4.8-10.8)
[2024-08-06] MEDS: TYLENOL 1000 MG PO ×3 (06:05→23:10)
[2024-08-06 07:00] VITALS: BP 135/69
[2024-08-06] MEDS: COLACE 100 MG PO (09:16)
[2024-08-06] MEDS: SENOKOT PO ×2 (09:16→20:53)
[2024-08-06] MEDS: LOVENOX 40 MG SC (09:16)
[2024-08-06] MEDS: SYNTHROID 75 MCG PO (09:16)
[2024-08-06] MEDS: FLUSH (NSS) 2 FLUSH IV (09:17)
[2024-08-06] MEDS: LEVAQUIN 100 IV (09:17)
[2024-08-06 10:27] LABS: Iron < 20 ug/dl (37-170)
[2024-08-06 10:34] LABS: Total Iron Binding Capacity 233 ug/dl (265-497)
[2024-08-06] MEDS: TORADOL 15 MG IV (12:30)
[2024-08-06] MEDS: FERRLECIT 110 MG IV (14:00)
--- NOTE | 2024-08-06 14:49 | CM ---
CM reviewed pt with Dr Lott- ADC tomorrow
Continuing to monitor hgb
Update to [facility] admissions
Bed remains available
CM completd bedside visit with pt to complete IMM
Copy left bedside
Pt unable to follow or comprehend discussion
Call to spouse- verbally reviewed IMM over phone
Transport forms completed by prior CM and on the chart
Discharge Disposition- [facility]
Phone- [phone] ext. [phone] Fax- [phone]
[2024-08-06 15:00] VITALS: BP 141/63
[2024-08-06 15:35] VITALS: BP 104/51; BP 112/63; BP 112/74; BP 117/62; PULSE 66; PULSE 79; PULSE 89; O2SAT 97
--- NOTE | 2024-08-06 15:47 | W.PN.HOSP.TC ---
Today's Communication/Plan
-
IV iron
Monitor hemoglobin
Discharge planning
Assessment / Plan
Assessment / Plan
A/P:
Right hip fracture:
Status post insertion right short cephalomedullary nail on 08/02.
Pain control--> on scheduled Tylenol, added IV Toradol as needed, and oxycodone low-dose only for severe pain as needed
PT OT eval
Suspected UTI:
Start IV Levaquin 500 mg daily (cephalosporin allergy).
Reviewed last twelve-lead EKG on 08/01 with QTc acceptable around 420
Abnormal UA with pyuria 7-80 WBC count positive nitrite and positive leukocyte esterase and few bacteria.
Urine culture with sensitive E. coli. Plan is to transition to oral antibiotics to complete total 5-day course upon discharge
In hospital delirium:
Improving
Minimize narcotics as much as possible
Treat infection
Redirect and keep steady environment
Monitor mental status and behavior
Acute anemia anemia secondary to blood loss as well as dilutional:
Hemoglobin drifted down to 7.9 with no evidence of acute blood loss
Iron deficient
No clear indication for transfusion
Start IV iron
Follow CBC on 08/07
Preop eval:
Patient was risk stratified and was okay to go for surgery and no contraindications.
RCRI 0 given her risk of 3.9% risk of , CT, or cardiac arrest
Twelve-lead EKG interpreted by myself with sinus bradycardia [address]-T changes abnormality or any other concerning abnormalities.
Continue to monitor perioperatively
Hypothyroidism:
Continue levothyroxine 75 mcg p.o. daily
Hyperlipidemia:
Continue atorvastatin 10 mg p.o. nightly
DVT prophylaxis:
Lovenox SQ
CODE STATUS:
Full code
Anticipated Discharge: 24 - 48 hours
Subjective/Interval History
-
Date of Service: August 06, 2024
Objective Data
-
Labs:
Laboratory Results
08/06/24
04:28
WBC 9.1
Hgb 7.8 L
Hct 23.9 L
Plt Count 365
Vital Signs:
Vital Signs
Temp Pulse Resp BP Pulse Ox
97.9 F 68 18 141/63 97
08/06/24 15:00 08/06/24 15:00 08/06/24 15:00 08/06/24 15:00 08/06/24 15:00
I&O
08/05/24 08/06/24 08/07/24
06:59 06:59 06:59
Intake Total 1720 / 1720 340 / 340
Balance 1720 / 1720 340 / 340
Physical Exam
-
General: Well Developed and No Apparent Distress
HEENT: Normocephalic, Atraumatic and Moist Mucous Membranes
Respiratory: Clear to Auscultation
Cardiac: Regular Rhythm and S1/S2; Negative Murmur, Rub or Gallop
GI: Soft, Nontender, Nondistended and Normal Bowel Sounds; Negative Organomegaly
Rectal: Deferred by Provider
Musculoskeletal: No Clubbing, No Cyanosis and No Edema
Skin: Negative Rash
Neuro: Awake, Alert, Oriented, AO x 3 and Nonfocal/Grossly Intact
[2024-08-06] MEDS: LIPITOR 10 MG PO (17:34)
[2024-08-06] MEDS: COLACE PO (20:57)
[2024-08-06 22:39] VITALS: BP 143/64
[2024-08-07] MEDS: TYLENOL 1000 MG PO (06:03)
[2024-08-07 07:35] VITALS: BP 128/63
[2024-08-07] MEDS: LOVENOX 40 MG SC (08:23)
[2024-08-07] MEDS: SYNTHROID 75 MCG PO (08:23)
[2024-08-07] MEDS: LEVAQUIN 500 MG PO (08:23)
[2024-08-07] MEDS: SENOKOT PO (08:26)
[2024-08-07] MEDS: COLACE PO (08:26)
[2024-08-07] MEDS: ROXICODONE 5 MG PO (09:10)
[2024-08-07 09:42] LABS: Hematocrit 27.9 % (37.0-47.0); Hemoglobin 8.9 g/dL (12.0-16.0); Mean Corp Hgb Conc. 31.9 g/dL (33.0-37.0); Mean Corpuscular Hgb 28.9 pg (27.0-31.0); Mean Corpuscular Volume 90.6 fL (81.0-99.0); Mean Platelet Volume 9.5 fL (7.4-10.4); Platelet Count 478 10^3/uL (130-400); Red Blood Cell Count 3.08 10^6/uL (4.20-5.40); Red Cell Dist. Width 13.2 % (11.5-14.5); White Blood Cell Count 9.7 10^3/uL (4.8-10.8)
--- NOTE | 2024-08-07 11:33 | W.DS.TRANS ---
DC Summary - Virtualization Engineer
-
Discharge Instructions:
Discharge Diagnosis/Procedures Hip fracture status post repair.
Diet Low Cholesterol
Activity As tolerated
Blood Work Please PCP to order CBC, BMP within 1 week
Instructions:
Stand-Alone Forms:
Changes to Home Medications: Yes
Discharge Medications:
DC Medications w/original date entered in [employer]
levothyroxine 75 mcg tablet (Synthroid) 75 mcg PO DAILY Thyroid 03/02/11
simvastatin 20 mg tablet 20 mg PO HS High Cholesterol 03/02/11
therapeutic multivitamin 1 tab PO DAILY Supplement 08/01/24
docusate sodium 100 mg capsule 100 mg PO BID #10 caps 08/03/24
enoxaparin 40 mg/0.4 mL subcutaneous syringe 40 mg (0.4 mL) SC DAILY #28 mL 08/03/24
oxycodone 5 mg tablet 5 mg PO Q4HPRN PRN mild pain #14 tabs 08/03/24
acetaminophen 500 mg tablet (Tylenol Extra Strength) 1,000 mg (2 x 500 mg) PO Q8H PRN Pain #30 tabs 08/07/24
levofloxacin 500 mg tablet 500 mg PO DAILY #3 tabs 08/07/24
Home Medication Changes
Complete antibiotics for UTI through 08/10
Lovenox for DVT prophylaxis for 28 days post operatively
Pending Results: No
--- NOTE | 2024-08-07 11:45 | CM ---
Addendum entered by Molly Stevens 08/07/24 11:48:
Updated pts of planned transfer to [facility] at 2:30PM
Facility notified of transport time
Original Note:
Pt for discharge today
Accepted at [facility]
Transport at 2:30PM
Plan - transfer to [facility] SNF when medically stable
R - [phone], ext [phone]
F - [phone]
[2024-08-07] MEDS: FERRLECIT 110 MG IV (13:02)
[2024-08-07 13:37] VITALS: BP 121/64
== END 2024-08-07 14:53 | DRG 481 ==
LOC: 2 SOUTH 23:59
PROVIDERS: Hospitalist; ADMITTING PHYSICIAN Internal Medicine; ATTENDING PHYSICIAN Internal Medicine; CONSULT PHYSICIAN Orthopaedic Surgery; EMERGENCY PHYSICIAN Emergency Medicine
PROC: 0QS606Z Reposition Right Upper Femur with Intramedullary Internal Fixation Device, Open Approach (ICD-10-PCS; 2024-08-02)
DX: S72.141A Displaced intertrochanteric fracture of right femur, initial encounter for closed fracture (principal); D62 Acute posthemorrhagic anemia; F05 Delirium due to known physiological condition; N39.0 Urinary tract infection, site not specified; D50.0 Iron deficiency anemia secondary to blood loss (chronic); E03.9 Hypothyroidism, unspecified; E78.00 Pure hypercholesterolemia, unspecified
CPT/HCPCS: 70450; 71045; 73502; 73552; 76000; 80048; 80053; 81003; 81015; 82728; 83540; 83550; 85025; 85027; 85610; 86850; 86900; 86901; 87077; 87086; 87186; 93005; 96374; 96375; 97110; 97116; 97163; 97167; 97530; 97535; 99285; C1713; J2916